=== PATIENT | female | born 1970 | race Caucasian/White ===

== ENCOUNTER 2016-12-26 11:04 | Emergency (ER) | payer MEDICARE, MEDICAID ==
[2010-09-24 23:16] VITALS: BMI 30.4
== END 2016-12-26 12:18 | disposition home or self-care (01) ==
LOC: D.ER 11:04
DX: J06.9 Acute upper respiratory infection, unspecified (principal); Z85.841 Personal history of malignant neoplasm of brain; G40.909 Epilepsy, unspecified, not intractable, without status epilepticus; F17.200 Nicotine dependence, unspecified, uncomplicated

== ENCOUNTER 2020-05-28 17:45 | Inpatient (IN) | payer MEDICARE, MEDICAID ==
[~2020-05-28] VITALS: Ht 172.7 cm; Wt 77.3 kg
[2020-05-28 17:54] VITALS: BP 116/81
[2020-05-28 17:58] VITALS: BP 124/86
[2020-05-28 18:07] VITALS: BP 123/76
[2020-05-28 18:21] LABS: BASOPHILS 0.4 % (0-2); EOSINOPHILS 2.1 % (0-7); HEMATOCRIT 43.3 % (36.0-48.0); IMMATURE GRANULOCYTES 0.2 % (0-5); LYMPHOCYTES 35.3 % (15-50); MCH 27.6 pg (26.0-34.0); MCHC 32.3 g/dL (31.0-37.0); MCV 85.4 fL (80.0-100.0); MEAN PLATELET VOLUME 11.5 fL (7.4-10.4); MONOCYTES 4.9 % (2-11); NEUTROPHILS 57.1 % (40-80); RBC 5.07 10x6/uL (4.00-5.40); RDW 14.5 % (11.5-14.5); WBC 11.1 10x3/uL (4.8-10.8)
[2020-05-28 18:25] LABS: CALC OSMOLALITY 285 mosm/kg (275-300); CALCIUM 9.5 mg/dL (8.5-10.1); CARBON DIOXIDE 23.5 mmol/L (21.0-32.0); CHLORIDE - SERUM 104 mmol/L (98-107); CREATININE - SERUM 1.1 mg/dL (0.6-1.3); PLATELET COUNT 305 10x3/uL (130-400); POTASSIUM - SERUM 3.6 mmol/L (3.5-5.1); SODIUM 142 mmol/L (136-145); UREA NITROGEN 12 mg/dL (7-18); eGFR NON AFRICAN AMERICAN 56 mL/min (90-120)
[2020-05-28 18:31] LABS: GLUCOSE 149 mg/dL (74-106)
[2020-05-28 18:32] LABS: APTT 32.5 SECONDS (22.8-39.4); INR 0.96 (0.85-1.17); PROTIME 12.8 SECONDS (11.6-15.0)
[2020-05-28 18:37] VITALS: BP 115/78
[2020-05-28 18:40] LABS: ALBUMIN 4.2 g/dL (3.4-5.0); ALKALINE PHOSPHATASE 118 U/L (30-120); ALT (SGPT) 42 U/L (10-68); BILIRUBIN - TOTAL 0.54 mg/dL (0.2-1.3); CREATINE KINASE 176 UL (21-215); PROTEIN - SERUM 7.6 g/dL (6.4-8.2)
[2020-05-28 18:49] LABS: TROPONIN-I < 0.017 ng/mL (0.000-0.060)
--- NOTE | 2020-05-28 19:10 | NUR ---
REPORT TO JOSE MURRELL
[2020-05-28 20:00] VITALS: BP 112/72
[2020-05-28] MEDS ORDERED: BUSPAR5 MG PO (20:56)
[2020-05-28] MEDS ORDERED: DILANTIN100 MG PO (20:57)
[2020-05-28] MEDS ORDERED: ATIVAN0.5 MG PO (20:57)
[2020-05-28] MEDS ORDERED: OXYBUTYNIN CHLOR5 MG PO (20:57)
[2020-05-28] MEDS ORDERED: SINEQUAN25 MG PO (20:58)
[2020-05-28] MEDS ORDERED: ZOLOFT25 MG PO (20:58)
[2020-05-29] VITALS: BP 105/69
[2020-05-29 03:12] VITALS: Ht 172.7 cm; Wt 77.3 kg
--- NOTE | 2020-05-29 03:18 | NUR ---
I have reviewed this patient and I concur with the Shift Assessment completed by the Licensed Practical Nurse today this shift.
[2020-05-29 04:00] VITALS: BP 104/59
[2020-05-29 06:56] LABS: ALBUMIN 3.3 g/dL (3.4-5.0); ALKALINE PHOSPHATASE 90 U/L (30-120); ALT (SGPT) 36 U/L (10-68); BILIRUBIN - TOTAL 0.23 mg/dL (0.2-1.3); CALCIUM 8.5 mg/dL (8.5-10.1); CHLORIDE - SERUM 109 mmol/L (98-107); CHOL - HDL RATIO 2.2 ratio (2.3-4.1); CHOLESTEROL, TOTAL 121 mg/dL (0-200); CKMB 2.7 U/L (0.0-3.6); CREATINE KINASE 116 UL (21-215); HDL CHOLESTEROL 55 mg/dL (32-96); LDL CHOLESTEROL 59 mg/dL (0-100); LDL-HDL RATIO 1.1 ratio (1.5-3.5); MAGNESIUM - SERUM 1.9 mg/dL (1.8-2.4); PHENYTOIN (DILANTIN) 0.6 ug/mL (10.0-20.0); PHOSPHOROUS 4.4 mg/dL (2.5-4.9); POTASSIUM - SERUM 3.8 mmol/L (3.5-5.1); PRO BNP 204 pg/mL (0-125); PROTEIN - SERUM 6.2 g/dL (6.4-8.2); SODIUM 142 mmol/L (136-145); TRIGLYCERIDE 36 mg/dL (30-200); UREA NITROGEN 13 mg/dL (7-18)
[2020-05-29 07:10] LABS: CALC OSMOLALITY 281 mosm/kg (275-300); CREATININE - SERUM 0.7 mg/dL (0.6-1.3); GLUCOSE 89 mg/dL (74-106); eGFR NON AFRICAN AMERICAN > 90 mL/min (90-120)
[2020-05-29 07:11] LABS: BASOPHILS 0.6 % (0-2); EOSINOPHILS 3.4 % (0-7); HEMATOCRIT 38.3 % (36.0-48.0); HEMOGLOBIN 12.2 g/dL (12-16); LYMPHOCYTES 40.3 % (15-50); MCH 27.1 pg (26.0-34.0); MCHC 31.9 g/dL (31.0-37.0); MCV 85.1 fL (80.0-100.0); MEAN PLATELET VOLUME 11.6 fL (7.4-10.4); MONOCYTES 6.1 % (2-11); NEUTROPHILS 49.6 % (40-80); RDW 14.6 % (11.5-14.5); TROPONIN-I 0.268 ng/mL (0.000-0.060)
[2020-05-29 07:12] LABS: PLATELET COUNT 191 10x3/uL (130-400); WBC 5.2 10x3/uL (4.8-10.8)
--- NOTE | 2020-05-29 07:35 | NUR ---
REPORT RECIVED. PT SITTING SEMI FOWLERS IN BED. RR EVEN AND UNLABORED ON RA. PT HAS A L AC PIV INFUSING AMIODARONE @ 17 AND NS @ 100. SHE ALSO HAS A R AC PIV THAT IS SL. BED LOCKED AND IN LOWEST POSITION, CALL LIGHT WITHIN REACH. WILL CTM
[2020-05-29 09:56] VITALS: BP 108/57
[2020-05-29 12:42] LABS: CKMB 2.6 U/L (0.0-3.6); CREATINE KINASE 99 UL (21-215)
[2020-05-29 12:44] LABS: TROPONIN-I 0.131 ng/mL (0.000-0.060)
[2020-05-29 13:58] VITALS: BP 131/71
--- NOTE | 2020-05-29 15:03 | NUR ---
I have reviewed this patient and I concur with the Shift Assessment completed by the Licensed Practical Nurse today this shift.
[2020-05-30] VITALS: BP 105/71
--- NOTE | 2020-05-30 02:45 | NUR ---
I have reviewed this patient and I concur with the Shift Assessment completed by the Licensed Practical Nurse today this shift.
[2020-05-30 06:31] LABS: BASOPHILS 0.4 % (0-2); EOSINOPHILS 3.9 % (0-7); HEMATOCRIT 37.1 % (36.0-48.0); HEMOGLOBIN 11.5 g/dL (12-16); IMMATURE GRANULOCYTES 0.2 % (0-5); LYMPHOCYTES 44.1 % (15-50); MCH 26.5 pg (26.0-34.0); MCV 85.5 fL (80.0-100.0); MEAN PLATELET VOLUME 11.1 fL (7.4-10.4); MONOCYTES 4.9 % (2-11); NEUTROPHILS 46.5 % (40-80); PLATELET COUNT 173 10x3/uL (130-400); RBC 4.34 10x6/uL (4.00-5.40); RDW 14.6 % (11.5-14.5); WBC 4.9 10x3/uL (4.8-10.8)
[2020-05-30 06:32] LABS: CALC OSMOLALITY 279 mosm/kg (275-300); CALCIUM 8.3 mg/dL (8.5-10.1); CHLORIDE - SERUM 109 mmol/L (98-107); CREATININE - SERUM 0.7 mg/dL (0.6-1.3); GLUCOSE 91 mg/dL (74-106); MAGNESIUM - SERUM 1.8 mg/dL (1.8-2.4); PHOSPHOROUS 3.6 mg/dL (2.5-4.9); POTASSIUM - SERUM 4.2 mmol/L (3.5-5.1); SODIUM 141 mmol/L (136-145); eGFR NON AFRICAN AMERICAN > 90 mL/min (90-120)
[2020-05-30 06:36] LABS: UREA NITROGEN 9 mg/dL (7-18)
[2020-05-30 08:00] VITALS: BP 133/84
--- NOTE | 2020-05-30 10:43 | NUR ---
PT SWITCHED FROM IV CARDIZEM TO ORAL RYTHMOL. STATES SHE MAY GET TO GO HOME.
[2020-05-30] MEDS ORDERED: PROPAFENONE HC150 MG PO (11:17)
--- NOTE | 2020-05-30 12:59 | NUR ---
BOTH IVS REMOVED AND TELEMETRY RETURNED. INSTRUCTIONS FOR DISCHARGE SIGNED. WHEELED TO ER EXIT.
== END 2020-05-30 13:00 | disposition home or self-care (01) | DRG 282 ==
LOC: D.ER 17:45 → OBSVTIME 18:24 → D.M2 18:24
PROVIDERS: Family Medicine; ADMIT Family Medicine; ATTEND Family Medicine
DX: I47.9 Paroxysmal tachycardia, unspecified (principal); I21.A1 Myocardial infarction type 2; K21.9 Gastro-esophageal reflux disease without esophagitis; G40.909 Epilepsy, unspecified, not intractable, without status epilepticus; F15.10 Other stimulant abuse, uncomplicated; Z85.841 Personal history of malignant neoplasm of brain